=== PATIENT | female | born 1970 | race American Indian/Alaskan Native ===

== ENCOUNTER 2017-11-08 09:49 | Outpatient (CLI) | payer OTHER ==
--- NOTE | 2017-11-08 21:18 | XRay Report ---
FINAL REPORT EXAM: XR KNEE BILAT 3V HISTORY: KNEE PAIN TECHNIQUE: Bilateral knees 6 views PRIORS: None. FINDINGS: Right knee demonstrates medial tibiofemoral joint space narrowing with prominent osteophyte of the medial femoral condyle. No evidence for joint effusion. There narrowing of patellofemoral joint space with superior and inferior patellar osteophytes Left knee demonstrates marked medial tibiofemoral joint space narrowing with prominent osteophyte at the medial femoral condyle. 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
--- NOTE | 2017-11-08 21:22 | XRay Report ---
FINAL REPORT EXAM: XR SHOULDER 2+V RT HISTORY: SHOULDER PAIN TECHNIQUE: 4 views right shoulder PRIORS: None. FINDINGS: No fractures are identified. No dislocation seen. The acromioclavicular joint is intact. Adjacent bony and soft tissue structures are unremarkable. IMPRESSION: Negative shoulder series
--- NOTE | 2017-11-08 21:37 | XRay Report ---
FINAL REPORT EXAM: XR SPINE CERVICAL 2-3V HISTORY: BACK PAIN TECHNIQUE: Cervical spine 4 views PRIORS: None. FINDINGS: Vertebral bodies demonstrate normal height and alignment. The disk spaces are within normal limits. The facet joints demonstrate normal alignment. The spinous processes are intact. Craniocervical junction is unremarkable. C1 and C2 are intact. IMPRESSION: Negative cervical spine series.
== END 2017-11-08 09:50 | disposition home or self-care (01) ==
LOC: SPVIMAG 09:49
DX: M17.0 Bilateral primary osteoarthritis of knee (principal); M54.2 Cervicalgia; M25.511 Pain in right shoulder
CPT/HCPCS: 72040

== ENCOUNTER 2017-11-22 09:18 | Emergency (ER) | payer OTHER ==
[2017-11-22 09:24] VITALS: BP 159/105
[2017-11-22 10:46] LABS: Bilirubin,Urine NEG (Negative); Blood,Urine MOD (Negative); Color,Urine Yellow (Yellow); Mucus,Urine FEW /HPF; Urobilinogen,Urine < 2.0 mg/dL (<2.0)
--- NOTE | 2017-11-22 12:20 | Emergency Department Report ---
<MAAME HOPPER - Last Filed: 11/22/17 13:03> ED Female HPI - General Chief complaint: Urogenital-Female Stated complaint: INFECTION Time Seen by Provider: 11/22/17 11:49 Source: patient Mode of arrival: Ambulatory Limitations: No Limitations - History of Present Illness Initial comments: 47-year-old -[place] female comes in complaining of possibly some infection in urinary tract symptoms. Patient reports that she has mild pelvic pain dysuria 3 days she denies any nausea vomiting or fever no chills. She reports that she is very irritated down in her vaginal area. And this started on Tuesday tried no [id number] vaginal treatment. She's been taken ibuprofen without much relief of pain. He has a past medical history of hypertension but she did not take her medications today. Patient unaware of what medication she is supposed to be taken. Blood pressure is 159/105 denies any headache chest pain or shortness of breathing. MD Complaint: vaginal discharge, dysuria -: days(s) (3) Location: labia, suprapubic Severity: moderate Severity scale (0 -10): 8 Quality: burning Consistency: constant Improves with: none Worsens with: urination Are you Now?: No Associated Symptoms: vaginal discharge, dysuria. denies: vaginal bleeding, nausea/vomiting, fever/chills, hematuria - Related Data Sexually active: No (last over a year status post hysterectomy) Previous Rx's Medication Instructions Recorded Last Taken Type Metoprolol [Lopressor TAB] 50 mg PO BID #60 tablet 06/17/13 07/08/13 Rx HYDROcodone/APAP 10-325 [[place] 1 each PO Q6HR PRN #20 tablet 07/11/13 Unknown Rx 10/325] Nitrofurantoin [place]/M-Cryst 100 mg PO Q12HR #20 capsule 07/11/13 Unknown Rx [Macrobid] Fluticasone Propionate [Flonase] 16 gm NS QDAY #1 spray.susp 03/30/14 Unknown Rx Loratadine [Claritin] 10 mg PO DAILY #20 tablet 03/30/14 Unknown Rx Rizatriptan Benzoate [Maxalt] 5 mg PO Q2HR #10 tab 03/30/14 Unknown Rx Sodium Chloride/Sodium Bicarb 75 ml NS TID #1 spray 03/30/14 Unknown Rx [Nasa Mist Saline [place]] amLODIPine [Norvasc] 5 mg PO DAILY #30 tab 03/30/14 Unknown Rx Cephalexin [Keflex] 500 mg PO BID #14 capsule 11/22/17 Unknown Rx Phenazopyridine [Pyridium] 100 mg PO TID #9 tab 11/22/17 Unknown Rx Allergies Allergy/AdvReac Type Severity Reaction Status Date / Time No Known Allergies Allergy Verified 07/11/13 07:45 ED Review of Systems ROS: Stated complaint: INFECTION Other details as noted in HPI Eyes: denies: eye pain, eye discharge, vision change ENT: denies: ear pain, throat pain Respiratory: denies: cough, shortness of breath, wheezing Cardiovascular: denies: chest pain, palpitations Endocrine: no symptoms reported Gastrointestinal: abdominal pain Genitourinary: urgency, dysuria, frequency, discharge Musculoskeletal: denies: back pain, joint swelling, arthralgia Skin: rash (vaginal) Neurological: denies: headache, weakness, paresthesias Psychiatric: denies: anxiety, depression ED Past Medical Hx - Past Medical History Hx Hypertension: Yes (noncompliant) Hx Headaches / Migraines: Yes - Surgical History Hx Cholecystectomy: Yes Additional Surgical History: Hysterectomy 2001; R knee surgery 2010 - Social History Smoking Status: Never Smoker Substance Use Type: None - Medications Home Medications: Home Medications Medication Instructions Recorded Confirmed Last Taken Type Metoprolol [Lopressor TAB] 50 mg PO BID #60 tablet 06/17/13 07/11/13 07/08/13 Rx HYDROcodone/APAP 10-325 [[place] 1 each PO Q6HR PRN #20 tablet 07/11/13 Unknown Rx 10/325] Nitrofurantoin [place]/M-Cryst 100 mg PO Q12HR #20 capsule 07/11/13 Unknown Rx [Macrobid] Fluticasone Propionate [Flonase] 16 gm NS QDAY #1 spray.susp 03/30/14 Unknown Rx Loratadine [Claritin] 10 mg PO DAILY #20 tablet 03/30/14 Unknown Rx Rizatriptan Benzoate [Maxalt] 5 mg PO Q2HR #10 tab 03/30/14 Unknown Rx Sodium Chloride/Sodium Bicarb 75 ml NS TID #1 spray 03/30/14 Unknown Rx [Nasa Mist Saline [place]] amLODIPine [Norvasc] 5 mg PO DAILY #30 tab 03/30/14 Unknown Rx Cephalexin [Keflex] 500 mg PO BID #14 capsule 11/22/17 Unknown Rx Phenazopyridine [Pyridium] 100 mg PO TID #9 tab 11/22/17 Unknown Rx ED Physical Exam - General Limitations: No Limitations - Head Head exam: Present: atraumatic, normocephalic - Eye Eye exam: Present: normal appearance - ENT ENT exam: Present: mucous membranes moist - Cardiovascular Cardiovascular Exam: Present: regular rate, normal rhythm. Absent: systolic murmur, diastolic murmur, rubs, gallop - GI/Abdominal GI/Abdominal exam: Present: soft, normal bowel sounds - External exam: Present: swelling, other (hypopigmented rash around the labia majora and minora ) Speculum exam: Present: vaginal discharge Bi-manual exam: Present: normal bi-manual exam. Absent: adnexal tenderness, adnexal mass - Extremities Exam Extremities exam: Present: normal inspection - Back Exam Back exam: Present: normal inspection - Neurological Exam Neurological exam: Present: alert, oriented X3 - Psychiatric Psychiatric exam: Present: normal affect, normal mood - Skin Skin exam: Present: warm, dry, intact, normal color. Absent: rash ED Course Vital Signs 11/22/17 09:20 Temperature 98.6 F Pulse Rate 94 H Respiratory 16 Rate Blood Pressure 159/105 O2 Sat by Pulse 98 Oximetry ED Medical Decision Making - Medical Decision Making Patient has been evaluated by this provider in fast track. Discussed with patient that it appears that she has a urinary tract infection discussed the patient I will send a wet prep to check for any abnormalities such candidiasis, clue cells or Trichomonas. Also discussed the patient she needs to follow up with her primary care provider since she is having a lot of urinary incontinence this could be from her UTI or be a chronic issue. This can be managed by a primary care provider. Critical care attestation.: If time is entered above; I have spent that time in minutes in the direct care of this critically ill patient, excluding procedure time. ED Disposition Disposition: DC-01 TO HOME OR SELFCARE Is pt being admited?: No Condition: Stable Instructions: Urinary Tract Infection in Women (ED) Additional Instructions: Please complete antibiotics as prescribed. You can take the Pyridium for bladder spasms. Please drink plenty of fluids. Follow up with her primary care provider. Prescriptions: Cephalexin [Keflex] 500 mg PO BID #14 capsule Phenazopyridine [Pyridium] 100 mg PO TID #9 tab Referrals: PRIMARY CARE,MD [Primary Care Provider] - 3-5 Days Forms: Work/School Release Form(ED) <THANH GEE - Last Filed: 11/23/17 09:17> ED Medical Decision Making - Medical Decision Making Chart signed in retrospect. I did not have face to face time with the patient. Patient seen by MLP. I was available for consult but was not consulted
[2017-11-22] MEDS ORDERED: ULTRAM PO ONE (12:21)
== END 2017-11-22 13:12 | disposition home or self-care (01) ==
LOC: ED 09:18
DX: N39.0 Urinary tract infection, site not specified (principal); I10 Essential (primary) hypertension; Z90.710 Acquired absence of both cervix and uterus
CPT/HCPCS: 81001; 87210; 87591; 99283

== ENCOUNTER 2018-03-03 10:50 | Outpatient (CLI) | payer OTHER ==
--- NOTE | 2018-03-03 16:06 | Mammography Report ---
BILATERAL DIGITAL SCREENING MAMMOGRAM with CAD: 03/03/18 10:50:00 CLINICAL: Routine screening. COMPARISON:12/09/14 FINDINGS: The breasts are heterogeneously dense, which may obscure small masses. No mass, architectural distortion or suspicious calcifications. IMPRESSION: No mammographic evidence of malignancy. BI-RADS CATEGORY: 1 - - Negative RECOMMENDATION: Routine mammographic screening in one year. COMMENT: Patient follow-up letters are generated by our [employer] application.
== END 2018-03-03 10:51 | disposition home or self-care (01) ==
LOC: SPVWC 10:50
DX: Z12.31 Encounter for screening mammogram for malignant neoplasm of breast (principal); I10 Essential (primary) hypertension; G43.909 Migraine, unspecified, not intractable, without status migrainosus; Z90.710 Acquired absence of both cervix and uterus; Z90.49 Acquired absence of other specified parts of digestive tract
CPT/HCPCS: 77067

== ENCOUNTER 2018-08-17 09:05 | Emergency (ER) | payer OTHER ==
[2018-08-17 09:16] VITALS: BP 152/92
--- NOTE | 2018-08-17 09:59 | Emergency Department Report ---
Minor Respiratory - HPI Chief Complaint: Upper Respiratory Infection Stated Complaint: CHEST PAIN/ACHES/THROAT PAIN Time Seen by Provider: 08/17/18 09:28 Duration: 3 Days Pain Location: Facial, Throat, Chest Severity: moderate Minor Respiratory: Yes Rhinorrhea (yellow), Yes Sore Throat, Yes Able to Tolerate Fluids, Yes Cough (non productive), Yes Chest Pain (with cough only), Yes Fever (chills), No Ear Pain, No Sick Contacts, No Hemoptysis, No Shortness of Breath ED Review of Systems ROS: Stated complaint: CHEST PAIN/ACHES/THROAT PAIN Other details as noted in HPI Comment: All other systems reviewed and negative ED Past Medical Hx - Past Medical History Hx Hypertension: Yes (noncompliant) Hx Headaches / Migraines: Yes - Surgical History Hx Cholecystectomy: Yes Additional Surgical History: Hysterectomy 2001; R knee surgery 2010 - Social History Smoking Status: Never Smoker Substance Use Type: Alcohol - Medications Home Medications: Home Medications Medication Instructions Recorded Confirmed Last Taken Type Metoprolol [Lopressor TAB] 50 mg PO BID #60 tablet 06/17/13 07/11/13 07/08/13 Rx HYDROcodone/APAP 10-325 [[place] 1 each PO Q6HR PRN #20 tablet 07/11/13 Unknown Rx 10/325] Nitrofurantoin [place]/M-Cryst 100 mg PO Q12HR #20 capsule 07/11/13 Unknown Rx [Macrobid] Fluticasone Propionate [Flonase] 16 gm NS QDAY #1 spray.susp 03/30/14 Unknown Rx Loratadine [Claritin] 10 mg PO DAILY #20 tablet 03/30/14 Unknown Rx Rizatriptan Benzoate [Maxalt] 5 mg PO Q2HR #10 tab 03/30/14 Unknown Rx Sodium Chloride/Sodium Bicarb 75 ml NS TID #1 spray 03/30/14 Unknown Rx [Nasa Mist Saline [place]] amLODIPine [Norvasc] 5 mg PO DAILY #30 tab 03/30/14 Unknown Rx Cephalexin [Keflex] 500 mg PO BID #14 capsule 11/22/17 Unknown Rx Phenazopyridine [Pyridium] 100 mg PO TID #9 tab 11/22/17 Unknown Rx ALBUTEROL Inhaler (OR & NICU) 2 puff IH QID PRN #1 inhalation 08/17/18 Unknown Rx [ProAir HFA Inhaler] Amoxicillin/Potassium Clav 1 each PO BID #14 tablet 08/17/18 Unknown Rx [Augmentin 875-125 Tablet] Fluticasone [Flonase] 1 spray NS QDAY #1 bottle 08/17/18 Unknown Rx HYDROcodone/APAP 5-325 [[place] 1 each PO Q4HR PRN #12 tablet 08/17/18 Unknown Rx 5/325] predniSONE [Deltasone] 20 mg PO QDAY #5 tab 08/17/18 Unknown Rx Minor Respiratory Exam - Exam General: Vital signs noted. No distress. Alert and acting appropriately. HEENT: Yes Pharyngeal Erythema (mild), Yes Moist Mucous Membranes, Yes Frontal Tenderness, Yes Maxillary Tenderness, No Pharyngeal Exudates (none), No Rhinorrhea, No Conjuctival Injection Ear: Neither TM Bulge, Neither TM Erythema, Neither EAC Pain, Neither EAC Discharge Neck: Yes Supple, No Adenopathy Lungs: Yes Good Air Exchange, No Wheezes, No Ronchi, No Stridor, No Cough, No Labored Respirations, No Retractions, No Use of Accessory Muscles, No Other Abnormal Lung Sounds Heart: Yes Regular, No Murmur Abdomen: Yes Normal Bowel Sounds, No Tenderness, No Peritoneal Signs Skin: No Rash, No Edema Neurologic: Alert and oriented, no deficits. Musculoskeletal: Unremarkable. ED Course Vital Signs 08/17/18 09:13 Temperature 98.5 F Pulse Rate 117 H Respiratory 18 Rate Blood Pressure 152/92 O2 Sat by Pulse 95 Oximetry ED Medical Decision Making - Medical Decision Making Patient clinically has a sinusitis with possible acute bronchitis as well. Patient be given meds for symptomatic relief and discharged home. Critical care attestation.: If time is entered above; I have spent that time in minutes in the direct care of this critically ill patient, excluding procedure time. ED Disposition Clinical Impression: Acute bronchitis Acute sinusitis Qualifiers: Sinusitis location: frontal Recurrence: non-recurrent Qualified Code(s): J01.10 - Acute frontal sinusitis, unspecified Disposition: TO HOME OR SELFCARE Is pt being admited?: No Does the pt Need Aspirin: No Condition: Stable Instructions: Acute Bronchitis (ED), Sinusitis (ED) Referrals: BEATRIZ MCFARLAND DO [Primary Care Provider] - 3-5 Days Forms: Work/School Release Form(ED) Time of Disposition: 10:02
== END 2018-08-17 10:48 | disposition home or self-care (01) ==
LOC: ED 09:05
DX: J20.9 Acute bronchitis, unspecified (principal); J01.10 Acute frontal sinusitis, unspecified; J01.00 Acute maxillary sinusitis, unspecified; I10 Essential (primary) hypertension; G43.909 Migraine, unspecified, not intractable, without status migrainosus; Z90.710 Acquired absence of both cervix and uterus
CPT/HCPCS: 93005; 93010; 99282

== ENCOUNTER 2018-10-03 14:02 | Emergency (ER) | payer OTHER ==
[2018-10-03 14:31] VITALS: BP 167/86
[2018-10-03 15:08] LABS: Basophils # (Auto) 0.1 K/mm3 (0.0-0.1); Basophils % (Auto) 0.6 % (0.0-1.8); Eosinophils # (Auto) 0.1 K/mm3 (0.0-0.4); Eosinophils % (Auto) 0.6 % (0.0-4.3); Hematocrit 41.3 % (30.3-42.9); Hemoglobin 13.5 gm/dl (10.1-14.3); Lymphocytes # (Auto) 1.5 K/mm3 (1.2-5.4); Mean Corpuscular HGB Conc 33 % (30-34); Mean Corpuscular Volume 87 fl (79-97); Monocytes # (Auto) 0.9 K/mm3 (0.0-0.8); Monocytes % (Auto) 9.4 % (0.0-7.3); Platelet Count 159 K/mm3 (140-440); Red Blood Count 4.77 M/mm3 (3.65-5.03); Red Cell Distribution Width 16.3 % (13.2-15.2)
[2018-10-03 15:24] LABS: Alanine Aminotransferase 9 units/L (7-56); Albumin 3.9 g/dL (3.9-5); BUN/Creatinine Ratio 14; Blood Urea Nitrogen 11 mg/dL (7-17); Calcium 9.5 mg/dL (8.4-10.2); Hemolysis Index 3
[2018-10-03 16:39] LABS: Bilirubin,Urine NEG (Negative); Blood,Urine NEG (Negative); Color,Urine Yellow (Yellow); Mucus,Urine FEW /HPF; Protein,Urine <15 mg/dL mg/dL (Negative); Urobilinogen,Urine < 2.0 mg/dL (<2.0)
[2018-10-03] MEDS ORDERED: TORADOL IM ONE (16:40)
[2018-10-03] MEDS ORDERED: ZOFRAN ODT PO ONE (16:40)
[2018-10-03] MEDS ORDERED: NORCO 5/325 PO ONE (16:40)
--- NOTE | 2018-10-03 16:45 | Emergency Department Report ---
Minor Respiratory - HPI Chief Complaint: Upper Respiratory Infection Stated Complaint: ABD/HEAD PAIN Time Seen by Provider: 10/03/18 16:17 Duration: 1.5 months Severity: moderate Minor Respiratory: Yes Rhinorrhea, Yes Able to Tolerate Fluids, Yes Cough, Yes Sick Contacts, Yes Fever, No Sore Throat, No Ear Pain, No Hemoptysis, No Chest Pain, No Shortness of Breath Other History: Mrs. Almazan is a 48 yo female who presents with nasal congestion and cough for 1 1/2 months. Did not improve since recently evaluation early August. No hx of tobacco abuse. Has used Flonase. Not able to see PCP. ED Review of Systems ROS: Stated complaint: ABD/HEAD PAIN Other details as noted in HPI Constitutional: fever, malaise ENT: denies: ear pain Respiratory: cough. denies: shortness of breath Gastrointestinal: abdominal pain (with cough) Neurological: headache ED Past Medical Hx - Past Medical History Previous Medical History?: Yes Hx Hypertension: Yes (noncompliant) Hx Headaches / Migraines: Yes - Surgical History Hx Cholecystectomy: Yes Additional Surgical History: Hysterectomy 2001; R knee surgery 2010 - Social History Smoking Status: Never Smoker Substance Use Type: Alcohol - Medications Home Medications: Home Medications Medication Instructions Recorded Confirmed Last Taken Type Metoprolol [Lopressor TAB] 50 mg PO BID #60 tablet 06/17/13 07/11/13 07/08/13 Rx HYDROcodone/APAP 10-325 [[place] 1 each PO Q6HR PRN #20 tablet 07/11/13 Unknown Rx 10/325] Nitrofurantoin [place]/M-Cryst 100 mg PO Q12HR #20 capsule 07/11/13 Unknown Rx [Macrobid] Fluticasone Propionate [Flonase] 16 gm NS QDAY #1 spray.susp 03/30/14 Unknown Rx Loratadine [Claritin] 10 mg PO DAILY #20 tablet 03/30/14 Unknown Rx Rizatriptan Benzoate [Maxalt] 5 mg PO Q2HR #10 tab 03/30/14 Unknown Rx Sodium Chloride/Sodium Bicarb 75 ml NS TID #1 spray 03/30/14 Unknown Rx [Nasa Mist Saline [place]] amLODIPine [Norvasc] 5 mg PO DAILY #30 tab 03/30/14 Unknown Rx Cephalexin [Keflex] 500 mg PO BID #14 capsule 11/22/17 Unknown Rx Phenazopyridine [Pyridium] 100 mg PO TID #9 tab 11/22/17 Unknown Rx ALBUTEROL Inhaler (OR & NICU) 2 puff IH QID PRN #1 inhalation 08/17/18 Unknown Rx [ProAir HFA Inhaler] Amoxicillin/Potassium Clav 1 each PO BID #14 tablet 08/17/18 Unknown Rx [Augmentin 875-125 Tablet] Fluticasone [Flonase] 1 spray NS QDAY #1 bottle 08/17/18 Unknown Rx HYDROcodone/APAP 5-325 [[place] 1 each PO Q4HR PRN #12 tablet 08/17/18 Unknown Rx 5/325] predniSONE [Deltasone] 20 mg PO QDAY #5 tab 08/17/18 Unknown Rx Amoxicillin/Potassium Clav 1 each PO BID 10 Days #20 tablet 10/03/18 Unknown Rx [Augmentin 875-125 Tablet] Loratadine 10 mg PO DAILY 30 Days #30 capsule 10/03/18 Unknown Rx traMADol [Ultram 50 MG tab] 50 mg PO Q6HR PRN #10 tablet 10/03/18 Unknown Rx Minor Respiratory Exam - Exam General: Vital signs noted. No distress. Alert and acting appropriately. HEENT: Yes Moist Mucous Membranes, Yes Rhinorrhea, Yes Conjuctival Injection, Yes Frontal Tenderness, Yes Maxillary Tenderness, No Pharyngeal Erythema, No Pharyngeal Exudates Neck: Yes Supple, No Adenopathy Lungs: Yes Good Air Exchange, No Wheezes, No Ronchi, No Stridor, No Cough, No Labored Respirations, No Retractions, No Use of Accessory Muscles, No Other Abnormal Lung Sounds Heart: Yes Regular, No Murmur Abdomen: Yes Normal Bowel Sounds, No Tenderness, No Peritoneal Signs Skin: No Rash, No Edema Neurologic: Alert and oriented, no deficits. Musculoskeletal: Unremarkable. ED Course Vital Signs 10/03/18 14:28 Temperature 98.8 F Pulse Rate 111 H Respiratory 18 Rate Blood Pressure 167/86 O2 Sat by Pulse 98 Oximetry ED Medical Decision Making - Lab Data Result diagrams: 10/03/18 14:45 10/03/18 14:45 - Medical Decision Making Mrs. Almazan has severe sinusitis and possibly allergic rhinitis. rx: augmentin due to duration/severity of symptoms, loratadine, tramadol I reviewed CBC chemistry within normal limits. Contaminated urine analysis without signs of infection. Critical care attestation.: If time is entered above; I have spent that time in minutes in the direct care of this critically ill patient, excluding procedure time. ED Disposition Clinical Impression: Sinusitis, acute, Allergic rhinitis Disposition: TO HOME OR SELFCARE Is pt being admited?: No Does the pt Need Aspirin: No Condition: Stable Instructions: Sinusitis (ED), Allergic Rhinitis (ED) Prescriptions: Amoxicillin/Potassium Clav [Augmentin 875-125 Tablet] 1 each PO BID 10 Days #20 tablet Loratadine 10 mg PO DAILY 30 Days #30 capsule traMADol [Ultram 50 MG tab] 50 mg PO Q6HR PRN #10 tablet PRN Reason: Pain, headache Referrals: GÉNESIS GREGORY MD, PHD [Primary Care Provider] - JEFFREY Forms: Work/School Release Form(ED)
== END 2018-10-03 20:04 | disposition home or self-care (01) ==
LOC: ED 14:02
DX: J01.10 Acute frontal sinusitis, unspecified (principal); J30.9 Allergic rhinitis, unspecified; I10 Essential (primary) hypertension; G43.909 Migraine, unspecified, not intractable, without status migrainosus; Z90.49 Acquired absence of other specified parts of digestive tract; Z90.710 Acquired absence of both cervix and uterus
CPT/HCPCS: 36415; 80053; 81001; 85025; 99283; J1885; Q0162